=== PATIENT | female | born 1995 ===

== ENCOUNTER 2017-01-25 09:00 | Emergency (ER) | payer OTHER ==
[2017-01-25 09:01] VITALS: BMI 26.6
[2017-01-25 09:32] VITALS: BP 102/57; PULSE 65; RESP 16; TEMP 97.9; O2SAT 100
--- NOTE | 2017-01-25 12:28 | ED PDOC ---
HPI: General Adult Time Seen by Provider: 01/25/17 10:01 Chief Complaint (Nursing): Abnormal Skin Integrity Chief Complaint (Provider): Rash History Per: Patient History/Exam Limitations: no limitations Onset/Duration Of Symptoms: Days (30) Current Symptoms Are (Timing): Still Present Additional Complaint(s): 21 y/o female with no past medical problems presents to the ED complaining of having a rash, to both arms, with an onset of 30 days. The patient reports of no fever or pain, but just states that she is very itchy. Of note, the patient has a surgical history of , but reports of no family or social history. Past Medical History Reviewed: Historical Data, Nursing Documentation, Vital Signs Vital Signs: Last Vital Signs Temp 97.9 F 01/25/17 09:30 Pulse 65 01/25/17 09:30 Resp 16 01/25/17 09:30 BP 102/57 L 01/25/17 09:30 Pulse Ox 100 01/25/17 13:00 - Medical History PMH: No Chronic Diseases - Surgical History Surgical History: - Family History Family History: States: Unknown Family Hx - Living Arrangements Living Arrangements: With Family - Social History Current smoker - smoking cessation education provided: No Alcohol: None Drugs: Denies - Home Medications Home Medications: Ambulatory Orders Medication Instructions Recorded Azithromycin [Zithromax Z-Tenzin] 250 mg PO DAILY #1 packet 05/02/15 Benzonatate 200 mg PO TID PRN #20 capsule 05/02/15 Oseltamivir Phosphate [Tamiflu] 75 mg PO BID #10 tab 05/02/15 Nystatin [Mycostatin Cream] 1 / TOP BID PRN #1 tube 01/25/17 - Allergies Allergies/Adverse Reactions: Allergies Allergy/AdvReac Type Severity Reaction Status Date / Time No Known Allergies Allergy Verified 05/02/15 13:59 Review of Systems ROS Statement: Except As Marked, All Systems Reviewed And Found Negative Constitutional: Negative for: Fever Skin: Positive for: Rash (no pain, just itchy) Physical Exam - Reviewed Nursing Documentation Reviewed: Yes Vital Signs Reviewed: Yes - Physical Exam Appears: Positive for: Non-toxic, No Acute Distress Head Exam: Positive for: ATRAUMATIC Skin: Positive for: Rash (patchy, scaly lesions on the flexor creases of the elbows) Eye Exam: Positive for: Normal appearance, EOMI, PERRL Neck: Positive for: Normal, Painless ROM, Supple Cardiovascular/Chest: Positive for: Regular Rate, Rhythm. Negative for: Murmur Respiratory: Positive for: Normal Breath Sounds. Negative for: Respiratory Distress Back: Positive for: Normal Inspection Extremity: Positive for: Normal ROM. Negative for: Pedal Edema, Deformity Neurologic/Psych: Positive for: Alert, Oriented. Negative for: Motor/Sensory Deficits - ECG O2 Sat by Pulse Oximetry: 100 (RA) Pulse Ox Interpretation: Normal Medical Decision Making Medical Decision Making: Time: --12:38 Impression: --Rash Plan: --ED Urine Reassess -- Scribe Attestation: Documented by Chandra Lara acting as a scribe for Rosanna Gasca MD. Disposition - Clinical Impression Clinical Impression: Rash - Disposition Referrals: [facility] [Outside] FAMILY PROVIDER,NO [Primary Care Provider] - Disposition: Routine/Home Disposition Time: 12:23 Condition: STABLE Prescriptions: Nystatin [Mycostatin Cream] 1 / TOP BID PRN #1 tube PRN Reason: Rash Instructions: Dermatitis (ED) Forms: [facility] [facility] (Cameroonian), [facility] [facility] (Portuguese) Print Language: ITALIAN
== END 2017-01-25 14:29 | disposition home or self-care (01) ==
LOC: H.ER 09:00
DX: R21 Rash and other nonspecific skin eruption (principal)